=== PATIENT | female | born 1960 | race Caucasian/White ===

== ENCOUNTER 2018-11-01 10:30 | Inpatient (IN) ==
[2018-11-08] MEDS ORDERED: Nasal Sanitizer POPSWAB ampule 3 AMP (Nozin) PREOP DOSE ENOS SCH (06:00)
[2018-11-08] MEDS ORDERED: Lactated Ringers 1,000 ML PRIMARY IV ONE ×2 (06:00→07:00)
[2018-11-08] MEDS ORDERED: LIDOCAINE W/ SODIUM BICARB 0.5 ML SYR SUBD ONE (06:00)
[2018-11-08] MEDS ORDERED: ceFAZolin Inj 2gm (Premix) 2 GM/50 ML BAG IV ONE ×2 (06:00→07:00)
[2018-11-08] MEDS ORDERED: LIDOCAINE W/ SODIUM BICARB 0.5 ML SYR ONE (07:00)
[2018-11-08] MEDS ORDERED: Vancomycin Inj 1gm vial ONE ×2 (07:00→15:34)
[2018-11-08] MEDS ORDERED: Sodium Chloride 0.9% 250 ML ONE (07:00)
[2018-11-08] MEDS ORDERED: HEPARIN 500 UNIT/5 ML SYRINGE FOR CENTRAL LINE IVP PRN (14:21)
[2018-11-08] MEDS ORDERED: LIDOCAINE 2% 20 MG/ML - 20 ML VIAL SUBCUT PRN (14:21)
[2018-11-08] MEDS ORDERED: Lidocaine 1% 10 MG/ML - 20 ML VIAL SUBCUT PRN (14:21)
[2018-11-08] MEDS ORDERED: Sodium Chloride 0.9% vial 20 ML ONE (15:34)
[2018-11-08] MEDS ORDERED: Gentamicin Inj 40 MG/ML VIAL ONE (15:34)
[2018-11-08] MEDS ORDERED: BACITRACIN 50,000 UNIT VIAL IRRIG ONE (15:35)
[2018-11-08] MEDS ORDERED: ROCURONIUM 10 MG/1 ML - 5 ML VIAL IVP ONE (15:38)
[2018-11-08] MEDS ORDERED: fentaNYL Inj 100 MCG/2 ML VIAL ONE (15:52)
[2018-11-08] MEDS ORDERED: PROPOFOL 10 MG/1 ML (200 MG/20 ML) VIAL IV ONE (15:53)
[2018-11-08] MEDS ORDERED: KETOROLAC 30 MG/1 ML VIAL ONE (17:43)
[2018-11-08] MEDS ORDERED: ONDANSETRON 4 MG/2 ML VIAL ONE (17:43)
[2018-11-08] MEDS ORDERED: SUGAMMADEX SODIUM 200 MG/2 ML VIAL IV ONE (18:02)
[2018-11-08] MEDS ORDERED: fentaNYL Inj 100 MCG/2 ML VIAL IVP PRN (18:30)
[2018-11-08] MEDS ORDERED: Lactated Ringers 1,000 ML PRIMARY IV SCH (18:30)
[2018-11-08] MEDS ORDERED: LIDOCAINE W/ SODIUM BICARB 0.5 ML SYR SUBD PRN (18:30)
[2018-11-08] MEDS ORDERED: Meperidine Inj 50 MG/ML CARPUJECT IVP PRN (18:30)
[2018-11-08] MEDS ORDERED: Metoclopramide Inj 10 MG/2 ML VIAL IVP PRN ×2 (18:30→19:34)
[2018-11-08] MEDS ORDERED: Prochlorperazine Edisylate Inj 10mg/2ml vial IVP PRN ×2 (18:30→19:34)
[2018-11-08] MEDS ORDERED: MORPHINE SULFATE 2 MG/1 ML IVP PRN ×2 (18:30→19:34)
[2018-11-08] MEDS ORDERED: PROMETHAZINE 25 MG/1 ML VIAL IM PRN ×2 (18:30→19:34)
--- NOTE | 2018-11-08 18:32 | CRNA.PROGR ---
Anesthesia Recovery Phase I - Post Anesthesia Evaluation Patient's Condition on Arrival in Phase I: Stable Patient's Condition on Arrival in Phase II: Stable Pain Level: 5
--- NOTE | 2018-11-08 18:32 | CRNA.PROGR ---
Anesthesia Time - Procedure/Recovery Time Start Date: 11/08/18 End Date: 11/08/18 Anesthesia : Time In: 15:39 Anesthesia : Time Out: 18:26 Anesthesia : Total Time: 167 - Total Anesthesia Time Total Anesthesia Time (minutes): 167 - Other Weight: 62.596 kg Height: 5 ft 7 in Body Mass Index (BMI): 21.6 Physical Status: P2 Anesthesia Type: General Anesthesia : ET
--- NOTE | 2018-11-08 18:36 | GEN.OPNOTE ---
Operative Note Surgery Date: 11/08/18 Preoperative Diagnosis: 1.) Draining IPG/Battery site suspicious for infection. 2.) Non-functional IPG/Battery devise. Postoperative Diagnosis: 1.) Draining IPG/Battery site suspicious for infection. 2.) Non-functional IPG/Battery devise. Procedure: 1.) Explant/removal of spinal cord stimulator system IPG/battery devise with removal of extension leads. (CPT code: 78512). 2.) Irrigation and debridement of IPG/battery pocket. Surgeon: Diaz Lopez MD [employer] Instructor: SHYANNE Ignacio Anesthesia Provider: José Oliver MD Anesthesia Type: General Estimated Blood Loss (mL): 15 Fluids: See anesthesia record Pathology: Cultures sent to the laboratory Indications: Ms. Herrera is a 57 year old female seen in new patient evaluation back in February 2018. She was scheduled for an anterior cervical discectomy and fusion at [facility], but ended up cancelling due to family issues. We were contacted by [facility] stating she was in need of a cervical spinal cord stimulator battery change. When she was seen at our [facility] for her surgical history and physical, she mentioned her battery site had been draining since May when she hit it on a door frame. She was referred to [facility] where they recommended having her stimulator battery removed. Findings: White, congealed friable tissue below draining site, sent to the laboratory for culture. Complications: None Operative Summary: Ms. Herrera was met in the preoperative area. Her surgical history and physical in her chart was reviewed. The procedure to be performed was confirmed with Ms. Herrera and this matched what was written on the patient's consent form. Any questions that she her had were answered before she was taken back to the operating room suite. Ms. Herrera was brought back to the operating room suite. She was put under general anesthesia and intubated by the anesthesia staff. She had pneumatic compression hose placed on her lower legs bilaterally. Ms. Herrera was carefully rolled over onto the [facility] surgical table with her arms gently positioned upwards with her shoulders abducted less than 90. Her arms were well-padded with foam padding atop of the padding the surgical armboards. The region of her chest and axilla was checked bilaterally to make sure that there were no pressure points over the region of the brachial plexus bilaterally. Her breasts were checked be below the chest pad of the Vic table no pressure points over the nipples. All bony prominences were well padded. Her pneumatic compression hose were attached to a pneumatic compression device. Ms. Herrera' extension needed connectors were located by palpation. There were then imaged with AP fluoroscopy to make sure that what was being palpated was indeed the extension lead connectors. Inspection of the skin rostral to this demonstrated a small horizontal incision just off the right of the midline of the midthoracic region of the back. This was demarcated with a skin marker with crosshatches. Her IPG/battery incision was also demarcated with a skin marker with crosshatches. Ms. Herrera was prepped and draped in the usual and standard fashion. She was not perioperative antibiotics secondary to the intent to culture the IPG/battery pocket. A standard surgical timeout was performed identifying the correct patient, the correct procedure, and the correct equipment being available for the procedure. The previous incision for the placement of her extension leads was incised with a 10 blade scalpel. Careful dissection was continued down through the subcutaneous tissue. This dissection yielded a loop of the stimulator leads beneath the incision and dissection was taken caudally and the subcutaneous tissue locating the extension lead connectors. Scar tissue over the extension lead connectors was carefully dissected away. The pseudocapsule's over the extension lead connectors were carefully entered by dissection with a 15 blade scalpel. The sutures securing the extension lead boots over the extension lead connectors were carefully cut with with a 15 blade scalpel. The extension lead boots were then cut with the Metzenbaum scissors removing them from over the extension lead connectors. The small stimulator wrench was then used to loosen the four screws in each rostral end of the extension lead connectors securing the spinal stimulator leads into the extension lead connectors. The caudal end of the spinal stimulator leads were then pulled out of the extension lead connectors. The extension leads were then cut just below the bulbous end of the extension lead connectors so that the extension leads could be pulled from the IPG/battery site below to remove the remainder of the extension leads. The loop of the lower aspect of the spinal stimulator leads was dissected free of scar tissue attachments such that he can be mobilized. A small pocket was made by blunt dissection rostrally in the subcutaneous tissues such that the caudal aspect of the leads and the loop of the leads could be placed into this subcutaneous pocket so they would not be directly underneath the incision however they still remained close to the incision. The surgical site was copiously irrigated with bacitracin/vancomycin/gentamicin irrigation solution. The deep subcutaneous tissue was then reapproximated with 2-0 Vicryl suture in an interrupted fashion. The dermis and superficial subcutaneous tissue was reapproximated with 3-0 Vicryl suture in a inverted interrupted fashion. The Ioban drape was pulled from around the skin edges and the final layer of closure was performed surgical stainless steel cinda. Incision was then dressed with a Tegaderm dressing. Attention was then turned to the IPG/battery site. The previous incision was reopened with a 15 blade scalpel. Dissection was continued to the scant subcutaneous tissue. The IPG/battery pseudocapsule was entered and the IPG/battery device was identified. There was no evidence of infected fluid but the inside of the IPG/battery pseudocapsule was cultured with culture sent to the laboratory for Gram stain and culture. The IPG/battery device was removed and the extension leads were then pulled through the subcutaneous tract from where they had been released from the dissection at the extension connector site. Although there was no clear evidence of infected tissue there was a whitish coagulated fragile tissue noted below where the battery pocket had been leaking from. This tissue was carefully collected and sent to the laboratory for culture. The pseudocapsule was carefully dissected out and removed. There was some hard tissue below where the whitish fragile tissue had been removed and this was dissected out with Bovie cautery. The IPG/battery site was then irrigated with hydrogen peroxide solution. The site was then copiously irrigated with bacitracin/vancomycin/gentamicin irrigation solution. All irrigating the battery pocket was noted that some of the irrigant was leaking through the skin more caudally from where the small purple pimple had previously been noted. When removing the Ioban drape there was a small hole measuring about 2-3 mm where the tip of the pimple had been which was now open to the subcutaneous tissue below, surrounded by a small purple base. This thin attenuated purple base was then ellipsed out with a 15 blade scalpel. This small opening was then closed with two 3-0 Vicryl suture in an interrupted fashion. The IPG/battery incision was then closed with the subcutaneous tissue being reapproximated with 2-0 Vicryl suture in an interrupted fashion and then the dermis and superficial subcutaneous tissue being reapproximated with 3-0 Vicryl suture in an inverted interrupted fashion. The epidermis of both incisions was then reapproximated with stainless steel cinda. The incisions were cleansed with a bacitracin soaked sponge and dried with sterile dry sponge. The incisions were dressed with a Covaderm dressing. The Tegaderm dressing from the other incision was then removed and this incision was covered with a Covaderm dressing as well. All surgical drapes were removed from Ms. Herrera. She was carefully rolled over onto the PACU stretcher. She was awoken and extubated by the anesthesia staff. She was taken to the recovery room in stable condition. All surgical counts reported as correct by the scrub and circulating personnel. A physician's transportation assistant Bertha Crews assisted with the procedure including the exposure and closure portions of the procedure and with retracting the tissues around the leads such as the leads could be dissected from the surrounding scar tissue and could be removed from their scarred pseudocapsule's.
[2018-11-08] MEDS: HYDROmorphone 2 MG/1 ML IVP PRN ×3 (18:41→19:10)
[2018-11-08] MEDS ORDERED: HYDROmorphone 2 MG/1 ML ONE (19:09)
[2018-11-08] MEDS ORDERED: HYDROcodone-APAP 7.5 MG-325 MG TABLET PO PRN (19:34)
[2018-11-08] MEDS ORDERED: MAGNESIUM CITRATE 296 ML SOLUTION PO PRN (19:34)
[2018-11-08] MEDS ORDERED: Ondansetron ODT Tab 4 MG TAB PO PRN (19:34)
[2018-11-08] MEDS ORDERED: BISACODYL 5 MG TABLET PO PRN (19:34)
[2018-11-08] MEDS ORDERED: HYDROcodone-APAP 5 MG -325 MG TABLET PO PRN (19:34)
[2018-11-08] MEDS ORDERED: Vancomycin-PHA to Dose IV SCH (19:34)
[2018-11-08] MEDS ORDERED: DOCUSATE 100 MG CAPSULE PO PRN (19:34)
[2018-11-08] MEDS ORDERED: ONDANSETRON 4 MG/2 ML VIAL IVP PRN (19:34)
[2018-11-08] MEDS ORDERED: Fleet Enema 133ml RECTAL PRN (19:34)
[2018-11-08] MEDS ORDERED: MAGNESIUM 400 MG/5 ML - 30 ML (MILK OF MAGNESIA) PO PRN (19:34)
--- NOTE | 2018-11-08 20:45 | NEURO.PROG ---
Subjective Post Op Day: 0 Pain Management: PO Diet: Regular Ambulating: Yes Additional Details: Sleepy in med/surg room, still waking from anesthesia. Low respirations but sats normal. Opens eyes and conversant, but drifts off easily. Moving all extremities well. PLAN: 1.) PICC line. 2.) Continue post-operative antibiotics. 3.) Continue post-operative pain control. 4.) Advance diet. 5.) Mobilize. Objective : Data - Vital Signs Vital Signs and I&O: Vital Signs - Last Taken Temperature 97.5 F 11/08/18 20:05 Pulse Rate 59 L 11/08/18 20:05 Respiratory Rate 18 11/08/18 20:05 Blood Pressure 126/76 11/08/18 20:05 Pulse Ox 93 11/08/18 20:05 Intake and Output (24hr x 4 totals) 11/06/18 11/07/18 11/08/18 11/09/18 05:59 05:59 05:59 05:59 Intake Total 1100 / 1100 Output Total 50 / 50 Balance 1050 / 1050
[2018-11-08] MEDS ORDERED: Simvastatin Tab 10 MG TAB PO SCH (21:00)
[2018-11-08] MEDS ORDERED: ClonazePAM Tab 1 MG TABLET PO SCH (21:00)
[2018-11-08] MEDS ORDERED: Pregabalin Cap 150mg capsule PO SCH (21:00)
[2018-11-08] MEDS ORDERED: NICOTINE 21 MG /DAY PATCH TRANSDERM ONE (21:39)
[2018-11-08] MEDS ORDERED: Acetaminophen 1000mg Inj 1,000 MG/100 ML VIAL IV PRN (21:56)
--- NOTE | 2018-11-08 22:45 | CONSULT ---
Consult Note - Consult Reason for Consult: PostOp Consulation : Neuro Requesting Physician: Diaz Lopez Primary Care Provider: NONE NONE - History of Present Illness History of Present Illness: Patient is postop stimulator removal. Denies any chest pain nausea or vomiting she is sitting up on the side of her bed respirations are about 12 no chest pain nausea or vomiting is at the bedside Past Medical History Medical History: Hypercholesterol, neuropathy, chronic pain, hypothyroidism Surgical History: Multiple pain stimulators removed for failure Tobacco Use: Current Every Day Smoker In the Past 12 Months, Have Used or Abuse Any of the Following Substance: None Review of Systems - Review of Systems All Systems: Reviewed & No Additional Complaints Except as Stated - Cardiovascular Cardiovascular: DENIES: Negative System Review, Chest Pain, Edema, Syncope, Palpitations, Orthopnea, Paroxysmal Nocturnal Dyspnea, Other, See HPI - Gastrointestinal Gastrointestinal / Abdominal: DENIES: Negative System Review, Nausea, Vomiting, Diarrhea, Constipation, Abdominal Pain, Bloody Stool, Poor Appetite, Heartburn, Regurgitation, Bloating, Lactose Intolerance, Melena, Bright Red Blood per Rectum, Other, See HPI Medication / Allergies Home Medications: Home Medications Medication Instructions Recorded Confirmed clonazepam 1 mg tablet 1 mg PO QHS tab 03/09/18 11/07/18 conjugated estrogens 0.3 mg tablet 0.3 mg PO QDAY 03/09/18 11/07/18 levothyroxine 25 mcg capsule 25 mcg PO QDAY 03/09/18 11/07/18 methotrexate sodium 2.5 mg tablet 10 mg PO QWEEK 03/09/18 11/07/18 pregabalin 300 mg capsule 600 mg PO BID cap 03/09/18 11/08/18 simvastatin 5 mg tablet 5 mg PO QHS 03/09/18 11/08/18 Allergies/Adverse Reactions: Allergies Allergy/AdvReac Type Severity Reaction Status Date / Time No Known Allergies Allergy Verified 11/07/18 08:33 Exam - Vitals Vital Signs: Vital Signs Temperature 97.7 F Temperature Source Oral Pulse Rate [Pulse Oximeter] 60 Pulse Rate [Pulse Oximeter] 61 Pulse Rate 50 Respiratory Rate 12 Blood Pressure [Right Arm] 144/82 Blood Pressure 119/75 Pulse Ox 95 Oxygen Flow Rate 2 Oxygen Delivery Method Nasal Cannula Height 5 ft 7 in Weight 138 lb - General General Appearance: No Acute Distress, Cooperative - Respiratory Respiratory Exam: POSITIVE: Clear to Auscultation - Bilaterally, Breathing Non Labored, Normal To Percussion, Normal to Percussion and Palpation - Cardiovascular Cardiovascular Exam: POSITIVE: RRR, No Murmur, No Clicks, No Gallops, No Rubs, PMI Non-Displaced - GI/Abdominal GI/Abdominal Exam: POSITIVE: Normal Bowel Sounds, Non Tender, Non Distended, Soft, No Masses, No Hepatomegaly, No Splenomegaly, No Organomegaly Assessment and Plan - Patient Problems (1) Chronic pain Current Visit: No Status: Chronic Comment: Chronic pain stimulator removed defer to neurosurgery postop instructions patient is on antibiotics by neurosurgery Code(s): G89.29 - Other chronic pain (2) High cholesterol Current Visit: No Status: Chronic Comment: Continue statin Code(s): E78.00 - Pure hypercholesterolemia, unspecified (3) Rheumatoid arthritis Current Visit: No Status: Chronic Comment: On methotrexate stable at present time Code(s): M06.9 - Rheumatoid arthritis, unspecified (4) Tobacco use Current Visit: Yes Status: Acute Comment: Patient is asking to smoke she was given a nicotine patch Code(s): Z72.0 - Tobacco use
[2018-11-08] MEDS ORDERED: ceFAZolin Inj 1 GM in Sodium Chloride 0.9% 100 ML IV SCH (23:00)
[2018-11-09 04:46] LABS: BASOPHILS # (AUTO) 0.01 10*3/UL; BASOPHILS % (AUTO) 0.1 % (0-1); EOSINOPHILS # (AUTO) 0 10*3/UL; EOSINOPHILS % (AUTO) 0 % (0-8); Hematocrit [HCT] 41.2 % (37.0-47.0); Hemoglobin [HGB] 13.4 g/dL (12.0-16.0); LYMPHOCYTES # (AUTO) 0.81 10*3/uL; MEAN CORPUSCULAR HEMOGLOBIN 34.3 PG (27-31); MEAN CORPUSCULAR HGB CONC 32.5 g/dL (33-37); MEAN CORPUSCULAR VOLUME 105.4 FL (81-99); MEAN PLATELET VOLUME 10.4 FL (7.4-12.2); MONOCYTES # (AUTO) 0.31 10*3/UL (0.3-0.8); MONOCYTES % (AUTO) 3.3 % (5-15); NEUTROPHILS # (AUTO) 8.34 10*3/UL; NEUTROPHILS % (AUTO) 87.9 % (50-80); RED BLOOD COUNT 3.91 10^6/uL (4.20-5.40)
[2018-11-09] MEDS: HYDROcodone-APAP 10 MG-325 MG TABLET PO PRN ×2 (04:46→08:35)
[2018-11-09 05:30] LABS: PLATELET MORPHOLOGY COMMENT NORMAL MORPHOLOGY (NORM); RBC MORPHOLOGY COMMENT NORMAL MORPHOLOGY (NORM); WBC MORPHOLOGY COMMENT NORMAL MORPHOLOGY (NORM)
[2018-11-09] MEDS ORDERED: LEVOTHYROXINE 25 MCG TABLET PO SCH (05:30)
[2018-11-09 05:34] LABS: BLOOD UREA NITROGEN 10 mg/dL (7-22); SERUM ALBUMIN 3.1 g/dL (3.5-4.8)
[2018-11-09] MEDS ORDERED: PREGABALIN 100 MG CAPSULE PO ONE (05:47)
--- NOTE | 2018-11-09 06:54 | NEURO.PROG ---
Subjective Post Op Day: 1 Pain Management: PO [place] Catheter: No Flatus: Yes Diet: Regular Additional Details: On rounds with Dr Lopez this morning Carin was awake and alert and planning to go home as soon as a plan has been made for her follow up with [facility]. She complains of surgical site pain but denies any other complaints. Plan for this morning is to mobilize in preparation for discharge. She was given discharge instructions, including incision care and activity and a follow up appointment in Dr [facility] in 2 weeks. Objective : Data - Labs CBC and BMP: 11/09/18 04:35 11/09/18 04:35 - Vital Signs Vital Signs and I&O: Vital Signs - Last Taken Temperature 97.5 F 11/09/18 05:00 Pulse Rate 57 L 11/09/18 05:00 Respiratory Rate 18 11/09/18 05:00 Blood Pressure 119/73 11/09/18 05:00 Pulse Ox 98 11/09/18 05:24 Intake and Output (24hr x 4 totals) 11/07/18 11/08/18 11/09/18 11/10/18 05:59 05:59 05:59 05:59 Intake Total 3208 / 3208 Output Total 700 / 700 100 / 100 Balance 2508 / 2508 -100 / -100
[2018-11-09] MEDS ORDERED: PANTOPRAZOLE 40 MG TABLET PO SCH (07:00)
[2018-11-09 07:05] VITALS: BP 113/69; RESP 14; TEMP 97.3; O2SAT 93
[2018-11-09] MEDS ORDERED: NICOTINE 21 MG /DAY PATCH TRANSDERM SCH (09:00)
[2018-11-09] MEDS ORDERED: CONJUGATED ESTROGENS 0.3 MG PO SCH (09:00)
[2018-11-09] MEDS ORDERED: Patch Removal NICOTINE PATCH TRANSDERM SCH (09:00)
[2018-11-10] MEDS ORDERED: METHOTREXATE SODIUM 10 MG PO SCH (09:00)
== END 2018-11-09 08:56 | disposition home or self-care (01) | DRG 42 ==
LOC: OPS 11-08 12:31 → EDSTATUS 11-08 15:00 → MED/SURG 11-08 18:46
PROVIDERS: ADMIT Neurological Surgery; ATTEND Neurological Surgery

== ENCOUNTER 2019-04-18 05:48 | Observation (INO) ==
[2019-04-18] MEDS ORDERED: Nasal Sanitizer POPSWAB ampule 3 AMP (Nozin) PREOP DOSE ENOS SCH (06:00)
[2019-04-18] MEDS ORDERED: Vancomycin-PHA to Dose IV PRN (06:00)
[2019-04-18] MEDS ORDERED: Lactated Ringers 1,000 ML PRIMARY IV ONE ×2 (06:00→06:01)
[2019-04-18] MEDS ORDERED: ceFAZolin Inj 2gm (Premix) 2 GM/50 ML BAG IV ONE ×2 (06:00→06:01)
[2019-04-18] MEDS ORDERED: Vancomycin 1 gm (Premix) 1 GM/200 ML PIGGYBACK IV ONE (06:00)
[2019-04-18] MEDS ORDERED: LIDOCAINE W/ SODIUM BICARB 0.5 ML SYR SUBD ONE (06:00)
[2019-04-18] MEDS ORDERED: Vancomycin Inj 1gm vial ONE ×2 (06:01→06:49)
[2019-04-18] MEDS ORDERED: Sodium Chloride 0.9% 250 ML ONE (06:01)
[2019-04-18] MEDS ORDERED: LIDOCAINE W/ SODIUM BICARB 0.5 ML SYR ONE (06:02)
[2019-04-18] MEDS ORDERED: BUPivacaine Inj 0.25% PF - 10ml vial ONE (06:48)
[2019-04-18] MEDS ORDERED: BUPivacaine Liposome/PF (Exparel) Inj 20ml vial INFIL ONE (06:49)
[2019-04-18] MEDS ORDERED: Gentamicin Inj 40 MG/ML VIAL ONE (06:49)
[2019-04-18] MEDS ORDERED: BACITRACIN 50,000 UNIT VIAL IRRIG ONE ×2 (06:49→06:54)
[2019-04-18] MEDS ORDERED: BUPIVACAINE 0.25% W/ EPI - 10 ML VIAL ONE (06:49)
[2019-04-18] MEDS ORDERED: Sodium Chloride 0.9% vial 30 ML ONE (06:49)
[2019-04-18] MEDS ORDERED: Povidone-Iodine Ointment 28.35 gm ointment TOPICAL ONE (06:56)
[2019-04-18] MEDS ORDERED: fentaNYL Inj 250 MCG/5 ML VIAL ONE (07:00)
[2019-04-18] MEDS ORDERED: PROPOFOL 10 MG/1 ML (200 MG/20 ML) VIAL IV ONE (07:01)
[2019-04-18] MEDS ORDERED: KETOROLAC 30 MG/1 ML VIAL ONE (07:01)
[2019-04-18] MEDS ORDERED: SUGAMMADEX SODIUM 200 MG/2 ML VIAL IV ONE (07:01)
[2019-04-18] MEDS ORDERED: LIDOCAINE MPF 2% - 5 ML (20 MG/1 ML) ONE (07:01)
[2019-04-18] MEDS ORDERED: ONDANSETRON 4 MG/2 ML VIAL ONE (07:01)
[2019-04-18] MEDS ORDERED: ROCURONIUM 10 MG/1 ML - 5 ML VIAL IVP ONE (07:02)
[2019-04-18] MEDS ORDERED: LIDOCAINE HCL 2 % 10 ML JELLY URO-JECT TOPICAL PRN (08:08)
[2019-04-18] MEDS ORDERED: DEXAMETHASONE PF 10 MG/1 ML VIAL ONE (08:53)
[2019-04-18] MEDS ORDERED: Sodium Chloride 0.9% vial 10 ML ONE (11:36)
[2019-04-18] MEDS ORDERED: Prochlorperazine Edisylate Inj 10mg/2ml vial IVP PRN ×2 (13:17→15:08)
[2019-04-18] MEDS ORDERED: MORPHINE SULFATE 2 MG/1 ML IVP PRN ×2 (13:17→15:08)
[2019-04-18] MEDS ORDERED: Meperidine Inj 50 MG/ML CARPUJECT IVP PRN (13:17)
[2019-04-18] MEDS ORDERED: PROMETHAZINE 25 MG/1 ML VIAL IM PRN ×2 (13:17→15:08)
[2019-04-18] MEDS ORDERED: ONDANSETRON 4 MG/2 ML VIAL IVP PRN ×2 (13:17→15:08)
[2019-04-18] MEDS ORDERED: LIDOCAINE W/ SODIUM BICARB 0.5 ML SYR SUBD PRN (13:17)
[2019-04-18] MEDS ORDERED: Metoclopramide Inj 10 MG/2 ML VIAL IVP PRN (13:17)
[2019-04-18] MEDS ORDERED: fentaNYL Inj 100 MCG/2 ML VIAL IVP PRN (13:17)
[2019-04-18] MEDS ORDERED: Lactated Ringers 1,000 ML PRIMARY IV SCH (13:30)
[2019-04-18] MEDS ORDERED: HYDROmorphone 2 MG/1 ML ONE (14:05)
[2019-04-18] MEDS: HYDROmorphone 2 MG/1 ML IVP PRN ×4 (14:08→14:28)
[2019-04-18] MEDS ORDERED: Ondansetron ODT Tab 4 MG TAB PO PRN (15:08)
[2019-04-18] MEDS ORDERED: oxyCODONE-ACETAMINOPHEN 5-325 TAB PO PRN (15:08)
[2019-04-18] MEDS ORDERED: MAGNESIUM 400 MG/5 ML - 30 ML (MILK OF MAGNESIA) PO PRN (15:08)
[2019-04-18] MEDS ORDERED: DOCUSATE 100 MG CAPSULE PO PRN (15:08)
[2019-04-18] MEDS ORDERED: MAGNESIUM CITRATE 296 ML SOLUTION PO PRN (15:08)
[2019-04-18] MEDS ORDERED: Vancomycin-PHA to Dose IV SCH (15:08)
[2019-04-18] MEDS ORDERED: BISACODYL 5 MG TABLET PO PRN (15:08)
[2019-04-18] MEDS ORDERED: CYCLOBENZAPRINE 10 MG TABLET PO PRN (15:08)
[2019-04-18] MEDS ORDERED: Fleet Enema 133ml RECTAL PRN (15:08)
[2019-04-18] MEDS ORDERED: Influenza 19-20 Vaccine (6mo+) 60 MCG/0.5 ML SYRINGE IM ONE (16:12)
[2019-04-18] MEDS: oxyCODONE/APAP 10/325 Tab 1 EACH TAB PO PRN ×2 (16:39→23:46)
[2019-04-18] MEDS: ceFAZolin Inj 2gm (Premix) 2 GM/50 ML BAG IV SCH ×2 (16:42→23:45)
[2019-04-18] MEDS: Pregabalin Cap 150mg capsule PO SCH (20:40)
[2019-04-18] MEDS ORDERED: Simvastatin Tab 10 MG TAB PO SCH (21:00)
[2019-04-18] MEDS ORDERED: ClonazePAM Tab 1 MG TABLET PO SCH (21:00)
[2019-04-19] MEDS: oxyCODONE/APAP 7.5/325 Tab 1 TAB TAB PO PRN ×2 (04:11→11:13)
[2019-04-19] MEDS ORDERED: LEVOTHYROXINE 25 MCG TABLET PO SCH (05:30)
[2019-04-19] MEDS ORDERED: PANTOPRAZOLE 40 MG TABLET PO SCH (07:00)
[2019-04-19 07:02] VITALS: BP 117/80; RESP 12; TEMP 97.6; O2SAT 96
[2019-04-19] MEDS ORDERED: ESTROGENS,CONJUGATED 0.625 MG TABLET PO SCH (09:00)
[2019-04-19] MEDS ORDERED: Influenza 19-20 Vaccine (6mo+) 60 MCG/0.5 ML SYRINGE IM ONE (09:43)
[2019-04-19] MEDS: Pregabalin Cap 150mg capsule PO SCH (09:54)
[2019-04-19] MEDS ORDERED: valACYclovir Tab 500 MG TAB PO ONE (10:31)
== END 2019-04-19 11:30 | disposition home or self-care (01) ==
LOC: MED/SURG 05:48 → OR 05:48
PROVIDERS: ADMIT Neurological Surgery; ATTEND Neurological Surgery